=== PATIENT | female | born 1965 | race Caucasian/White ===

== ENCOUNTER 2018-06-12 10:50 | Observation (INO) | payer OTHER ==
[~2018-06-12] VITALS: Ht 170.2 cm; Wt 78.2 kg
[2018-06-12] MEDS ORDERED: ASPIRIN 81 MG CHEW TAB PO ONE (11:15)
[2018-06-12] MEDS ORDERED: ACETAMINOPHEN 325 MG TAB PO ONE (11:45)
[2018-06-12] MEDS ORDERED: NITROGLYCERIN 0.4 MG SUBL SL ONE ×2 (11:45→12:30)
[2018-06-12 12:09] LABS: BASOPHILS % 0.5 % (0.0-1.0); EOSINOPHILS # (AUTO) 0.1 (0.0-0.4); EOSINOPHILS % 1.4 % (0.0-6.0); HEMATOCRIT 39.8 % (34.2-44.1); HEMOGLOBIN 13.8 g/dL (12.0-16.0); LYMPHOCYTES # (AUTO) 1.8 (1.0-3.2); MEAN CORPUSCULAR HEMOGLOBIN 31.2 pg (28-32); MEAN CORPUSCULAR HGB CONC 34.7 g/dL (31-35); MEAN CORPUSCULAR VOLUME 89.8 fL (81-99); MONOCYTES # (AUTO) 0.6 (0.2-0.8); MONOCYTES % 8.7 % (4.4-11.3); NEUTROPHILS # (AUTO) 4.1 (2.1-6.9); NEUTROPHILS % 62.2 % (38.7-80.0); PLATELET COUNT 251 x10e3/uL (140-360); RED BLOOD COUNT 4.43 x10e6/uL (3.6-5.1); RED CELL DISTRIBUTION WIDTH 11.9 % (11.7-14.4)
[2018-06-12 12:13] LABS: INR 0.92; PROTHROMBIN TIME 13.2 seconds (11.9-14.5)
[2018-06-12 12:14] LABS: PARTIAL THROMBOPLASTIN TIME 24.7 seconds (23.8-35.5)
--- NOTE | 2018-06-12 13:12 | Diagnostic Imaging Report ---
EXAMINATION: CHEST 2 VIEWS INDICATION: Chest pain COMPARISON: None FINDINGS: TUBES and LINES: None. LUNGS: Lungs are well inflated. Lungs are clear. There is no evidence of pneumonia or pulmonary edema. PLEURA: No pleural effusion or pneumothorax. HEART AND MEDIASTINUM: The cardiomediastinal silhouette is unremarkable. BONES AND SOFT TISSUES: No acute osseous lesion. Soft tissues are unremarkable. UPPER ABDOMEN: No free air under the diaphragm. IMPRESSION: No acute thoracic abnormality. Signed by: Dr. Kaiser Field M.D. on 06/12/2018 1:09 PM
[2018-06-12 14:29] LABS: ALANINE AMINOTRANSFERASE 20 IU/L (0-55); ALBUMIN 4.7 g/dL (3.5-5.0); ALBUMIN/GLOBULIN RATIO 1.4 (0.8-2.0); ALKALINE PHOSPHATASE 66 IU/L (40-150); BLOOD UREA NITROGEN 14 mg/dL (7-26); BUN/CREATININE RATIO 18 (6-25); CALCIUM 10.4 mg/dL (8.4-10.2); CARBON DIOXIDE 26 mmol/L (22-29); CHLORIDE 102 mmol/L (98-107); CREATINE KINASE 79 IU/L (29-168); EST GLOMERULAR FILTRATION RATE > 60 ML/MIN (60-); GLUCOSE 89 mg/dL (74-118); SODIUM 143 mmol/L (136-145)
[2018-06-12] MEDS ORDERED: BELLADONNA ALK/PHENOBARBITAL 5 ML UDC PO STA (15:43)
[2018-06-12 15:44] LABS: CHOL/HDL RATIO 2.4 (3.0-3.6)
[2018-06-12] MEDS ORDERED: LIDOCAINE VISC 2% SOLN 15 ML UDC PO ONE ×2 (15:45)
[2018-06-12] MEDS ORDERED: NITROGLYCERIN 0.4 MG SUBL SL PRN (15:45)
[2018-06-12] MEDS ORDERED: MORPHINE SULFATE 2 MG/ML SYR IV PRN (15:45)
[2018-06-12] MEDS ORDERED: MAGNESIUM/ALUMINUM/SIMETHICONE 30 ML UDC PO ONE ×2 (15:45)
[2018-06-12 18:02] VITALS: BP 133/98
[2018-06-12 18:12] VITALS: BP 130/98
[2018-06-12] MEDS ORDERED: NP THYROID30 MG PO (18:18)
[2018-06-12 20:00] VITALS: BP 125/58
[2018-06-12 20:05] VITALS: BP 125/58
[2018-06-12 20:54] LABS: CREATINE KINASE 66 IU/L (29-168)
[2018-06-13] VITALS: BP 117/56
[2018-06-13 04:00] VITALS: BP 120/56
[2018-06-13 05:44] LABS: CREATINE KINASE 73 IU/L (29-168)
[2018-06-13] MEDS ORDERED: ALPRAZOLAM0.25 M1 PO (06:50)
[2018-06-13] MEDS ORDERED: FAMOTIDINE20 MG PO (06:50)
[2018-06-13] MEDS ORDERED: ASPIR 8181 MG PO (06:50)
[2018-06-13 07:30] VITALS: BP 112/62
[2018-06-13] MEDS ORDERED: THYROID PORK 45 MG PO SCH (07:30)
[2018-06-13] MEDS ORDERED: FAMOTIDINE 20 MG TAB PO SCH (07:30)
--- NOTE | 2018-06-13 07:59 | History and Physical ---
PRIMARY CARE PHYSICIAN: Dr. Rodarte CHIEF COMPLAINT: Chest pain. HISTORY OF PRESENT ILLNESS: This is a 52-year-old woman with a history of hypothyroidism and increased stress at work, now developing substernal chest discomfort without any radiation. Lamont like something was in her throat, but there was no shortness of breath, dizziness or diaphoresis. All of her symptoms have resolved. She had some symptoms 1 night prior. All cardiac enzymes have been negative so far. Echocardiogram is pending. She has not had a stress test in the past. She did take some Tums for her symptoms without any relief. Currently, the patient is symptom free. PAST MEDICAL HISTORY: Hypothyroidism, anxiety/stress condition. PAST SURGICAL HISTORY: Left lumpectomy. ALLERGIES: PER ELECTRONIC MEDICAL RECORD. FAMILY HISTORY: Mother had coronary artery bypass grafting in her 70s. Sister had myocardial infarction in her 50s. MEDICATIONS: Per electronic medical record. SOCIAL HISTORY: Patient is . She has 3 children. Occasional alcohol. No cigarettes or illicits. REVIEW OF SYSTEMS: Denies any dizziness, chest pain, shortness of breath, diaphoresis, nausea, vomiting, or diarrhea at this time. PHYSICAL EXAMINATION VITAL SIGNS: Have been reviewed. GENERAL: A tired-appearing woman resting in bed. HEENT: Anicteric. CARDIOVASCULAR: Normal S1 and S2. No murmurs audible. LUNGS: She has moderate breath sounds. ABDOMEN: Soft, nontender and nondistended. EXTREMITIES: No edema or calf tenderness. NEUROLOGICAL: Alert and oriented times 3. Moving all extremities. SKIN: Dry. PSYCHIATRIC: Normal affect. LABS: Reviewed. MEDICATIONS: Reviewed. ASSESSMENT: This is a 52-year-old woman with: 1. Chest pain. 2. Overweight state. 3. Hypothyroidism. 4. Sinus bradycardia. PLAN 1. Cardiac enzymes negative times 3. 2. Follow up echocardiogram. Echocardiogram is negative. The patient can be transitioned home with plan for stress test outpatient. 3. Continue with aspirin. 4. Monitor heart rate for any worsening of condition. 5. Use Lovenox and Pepcid for prophylaxis. 6. Check TSH. 7. Possible discharge later today with plan for followup outpatient for stress testing. Job#: [id number] [place]
[2018-06-13] MEDS ORDERED: THYROID 60 MG TAB PO SCH (09:00)
[2018-06-13] MEDS ORDERED: ASPIRIN 325 MG TAB EC PO SCH (09:00)
[2018-06-13 10:02] VITALS: BP 106/72
[2018-06-13] MEDS ORDERED: ENOXAPARIN SOD INJ 40 MG/0.4 ML SYR SC SCH (17:00)
--- OUTSIDE RECORDS SUMMARY | 2018-06-19 12:17 | XMS REPORT | Continuity of Care Document ---
Author Author [facility] Interface Address Unknown Phone Unavailable Problems Problem Status Onset Date Classification Date Reported Comments Source NECK, LT SHOULDER AND THORACIC BACK PAIN Active 09/04/2015 [facility] Medications Medication Details Route Status Patient Instructions Ordering Provider Order Date Source Allergies, Adverse Reactions, Alerts Substance Category Reaction Severity Reaction type Status Date Reported Comments Source Immunizations Immunization Date Given Site Status Last Updated Comments Source Results Order Name Results Value Reference Range Date Interpretation Comments Source Vital Signs Vital Sign Value Date Comments Source Encounters Location Location Details Encounter Type Encounter Number Reason For Visit Attending Provider ADM Date DC Date Status Source [facility] OP Therapy Patients [id number] Elizabeth Vaca 08/31/2016 09/30/2016 [facility] Procedures Procedure Code Date Perfomer Comments Source
--- OUTSIDE RECORDS SUMMARY | 2018-06-19 12:17 | XMS REPORT | Summary of Care ---
Author Author [facility] Address Unknown Phone Unavailable Encounter HQ Rebekar_angel(KEN) [id number] Date(s): 08/31/16 - 09/29/16 [facility] Discharge Disposition: Home or Self Care Attending Physician: Elizabeth Vaca MD Vital Signs No data available for this section Problem List No data available for this section Allergies, Adverse Reactions, Alerts No data available for this section Medications No data available for this section Results No data available for this section Immunizations No data available for this section Procedures No data available for this section Social History No data available for this section Assessment and Plan No data available for this section
--- OUTSIDE RECORDS SUMMARY | 2018-06-19 12:25 | XMS REPORT ---
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 Allergies, Adverse Reactions, Alerts This patient has no known allergies or adverse reactions. Medications This patient has no known medications. 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 LUNGS: Lungs are well inflated. Lungs are clear. There is no evidence of pneumonia or pulmonary edema. PLEURA: No pleural effusion or pneumothorax. HEART AND MEDIASTINUM: The cardiomediastinal silhouette is unremarkable. BONES AND SOFT TISSUES: No acute osseous lesion. Soft tissues are unremarkable. UPPER ABDOMEN: No free air under the diaphragm. IMPRESSION: No acute thoracic abnormality. Signed by: Dr. Kaiser Field M.D. on 06/12/2018 1:09 PM Dictated By: KAISER FIELD MD, MD [id number] Transcribed By: KIM on 06/12/18 130 COPY TO: MASOUD COLEMAN NP
== END 2018-06-13 10:02 | disposition home or self-care (01) ==
LOC: ER 10:50 → ERHOLD 15:31 → MED/SURG 17:45
PROVIDERS: ADMIT Internal Medicine; ATTEND Internal Medicine
DX: R07.89 Other chest pain (principal); E03.9 Hypothyroidism, unspecified; E66.3 Overweight; R00.1 Bradycardia, unspecified; Z82.49 Family history of ischemic heart disease and other diseases of the circulatory system; Z68.28 Body mass index [BMI] 28.0-28.9, adult
CPT/HCPCS: 36415 ×2; 71046; 80053; 80061; 82550 ×2; 82553 ×2; 84443; 84484 ×2; 85025; 85610; 85730; 93005; 93306; 99284; G0378 ×2